=== PATIENT | female | born 1955 | race Hispanic/Latino ===

== ENCOUNTER 2021-02-19 13:03 | Emergency (ER) | payer BC, SELFPAY ==
[2021-02-19 13:15] VITALS: BP 165/92; PULSE 88; RESP 16; TEMP 36.9; O2SAT 99
--- NOTE | 2021-02-19 13:28 | ED.GENADULT ---
HPI - General Adult General Chief complaint: Unspecified Stated complaint: HBP Time Seen by Provider: 02/19/21 13:35 Source: patient Mode of arrival: ambulatory Limitations: no limitations History of Present Illness HPI narrative: Suyapa Quijano is a 65 yo female with a PMH hypothyroid, HTN, anxiety, high cholesterol, who comes to [facility] for an elevated blood pressure reading that she wants checked with the satff and o ask whether she can take lonazepam and clonidine at the same time Related Data Home Medications Medication Instructions Recorded Confirmed Arisocort TID 02/19/21 Diclofenac Gel 02/19/21 atorvastatin 40 mg PO DAILY 02/19/21 02/19/21 clonazepam BID PRN 02/19/21 clonidine HCl BID PRN 02/19/21 ergocalciferol (vitamin D2) 50 mcg PO DAILY 02/19/21 02/19/21 fluticasone propionate [Allergy 2 spray INTRANASAL DAILY 02/19/21 02/19/21 Relief (fluticasone)] levothyroxine 112 mcg PO DAILY 02/19/21 02/19/21 melatonin mg 02/19/21 olmesartan-hydrochlorothiazide 1 tablet PO DAILY 02/19/21 02/19/21 Allergies Allergy/AdvReac Type Severity Reaction Status Date / Time No Known Allergies Allergy Verified 02/19/21 13:26 Review of Systems Review of Systems: CONSTITUTIONAL: Denies fever, chills, sweats. EYES: Denies visual changes, redness, discharge. ENT: Denies rhinorrhea, congestion, sore throat, otalgia. CARDIOVASCULAR: Denies chest pain, palpitations, edema. RESPIRATORY: Denies dyspnea, wheezing, cough GASTROINTESTINAL: Denies abdominal pain, nausea, vomiting, diarrhea. GENITOURINARY: Denies dysuria, hematuria, abnormal discharge SKIN: Denies rash or itching. NEUROLOGIC: Denies numbness, or focal weakness. PSYCHIATRIC: Has anxiety or depression. Elevated blood pressure PMFSH Past Medical History Medical History Anxiety High cholesterol HTN (hypertension) Hypothyroid Social History Social History (Updated 02/19/21 @ 13:39 by Rachna Love CNP) Smoking status: Former smoker Alcohol intake: former Comments At time of signature, I agree with nursing past medical, surgical, social and family history. There is no relevant family history pertinent to the presenting complaint. Exam Narrative: GENERAL: This is a well-nourished, well-developed patient, anxious HEAD: normocephalic, atraumatic. EYES: Sclera clear/white. Vision is grossly intact. EARS: External ears normal, . Hearing grossly intact. NOSE: External nose normal without nasal discharge, THROAT: Mucous membranes moist, NECK: Neck supple, CARDIOVASCULAR: Regular rate and rhythm without murmurs, gallops, or rubs. RESPIRATORY: Clear to auscultation. Breath sounds equal bilaterally. No wheezes, rales, or rhonchi. GASTROINTESTINAL: Abdomen soft, SKIN: warm, intact NEURO: awake, alert, and oriented to person, place and time. There were no obvious focal neurologic abnormalities. EXTREMITIES: Normal range of motion. BACK: Not done Course Course Emergency Course: Patient here for anxiety and elevated blood pressure questions about use of clonazepam and clonidine Clarified patient may take the drugs together or separately as not to take clonidine more than twice a day as it is the supplemental drug to her primary blood pressure medication Strongly encourage patient to get a primary care physician if she is going to stay in the area Vital Signs Vital signs: Vital Signs Temperature 98.5 F 02/19/21 13:15 Pulse Rate 88 02/19/21 13:15 Respiratory Rate 16 02/19/21 13:15 Blood Pressure 165/92 H 02/19/21 13:15 Pulse Oximetry 99 02/19/21 13:15 Temperature 98.5 F 02/19/21 13:41 Pulse Rate 79 02/19/21 13:58 Respiratory Rate 16 02/19/21 13:41 Blood Pressure 159/98 H 02/19/21 13:58 Pulse Oximetry 99 02/19/21 13:41 Medical Decision Making Differential Diagnosis Differential Diagnosis: Anxiety versus viv Vital Signs Vital Signs: Milka
[2021-02-19 13:41] VITALS: BP 165/92; PULSE 88; RESP 16; TEMP 36.9; O2SAT 99
[2021-02-19 13:58] VITALS: BP 159/98; PULSE 79
== END 2021-02-19 13:58 | disposition home or self-care (01) ==
PROVIDERS: Emergency Provider Nurse Practitioner
DX: I10 Essential (primary) hypertension (principal); T43.595A Adverse effect of other antipsychotics and neuroleptics, initial encounter; E78.00 Pure hypercholesterolemia, unspecified; E03.9 Hypothyroidism, unspecified; F41.9 Anxiety disorder, unspecified; Z87.891 Personal history of nicotine dependence
CPT/HCPCS: 99211; G0463

== ENCOUNTER 2022-01-28 11:31 | Emergency (ER) | payer MEDICARE, BC, OTHER, SELFPAY ==
[2022-01-28 11:58] VITALS: BP 170/95; PULSE 109; RESP 18; TEMP 36.8; O2SAT 98
[2022-01-28 12:44] VITALS: BP 184/82
--- NOTE | 2022-01-28 12:50 | ED.URI ---
HPI - URI/Sore Throat General Chief Complaint: Upper Respiratory Infection Stated Complaint: congestion Time Seen by Provider: 01/28/22 12:50 Source: patient Mode of arrival: ambulatory Limitations: no limitations History of Present Illness HPI Narrative: John is a 66-year-old female patient presenting to the clinic today with complaints of nasal congestion and cough. She reports that these have been going for approximately 5 days. She knows she is bringing up some green phlegm. She denies any fever or chills. She she reports that she just got back from [place] that she was seeing her grandchildren and they were sick with upper respiratory symptoms. also reports that she has also reports that she has possible conjunctivitis to the left eye. She reports that her eye was matted shut this morning with yellow drainage MD elicited complaint: cough and nasal congestion Related Data Home Medications Medication Instructions Recorded Confirmed Arisocort TID 02/19/21 10/05/21 Diclofenac Gel 02/19/21 10/05/21 atorvastatin 40 mg tablet 40 mg PO DAILY 02/19/21 10/05/21 clonidine HCl 0.1 mg tablet BID PRN Blood Pressure 02/19/21 10/05/21 ergocalciferol (vitamin D2) 50 mcg 50 mcg PO DAILY 02/19/21 10/05/21 (2,000 unit) tablet fluticasone propionate 50 2 spray intranasal DAILY 02/19/21 10/05/21 mcg/actuation nasal spray,suspension (Allergy Relief (fluticasone)) levothyroxine 112 mcg capsule 112 mcg PO DAILY 02/19/21 10/05/21 melatonin 5 mg tablet mg 02/19/21 10/05/21 Allergies Allergy/AdvReac Type Severity Reaction Status Date / Time No Known Allergies Allergy Verified 01/28/22 12:16 Review of Systems Review of Systems: Pertinent positives per HPI. Patient denies any fever, chills, rash, headache, visual changes, dizziness, cough, shortness of breath, chest pain, palpitations, nausea, vomiting, diarrhea, constipation, abdominal pain, or any urinary issues. [facility] Past Medical History Medical History Anxiety Diabetes High cholesterol HTN (hypertension) Hypothyroidism Obesity Surgical History Surgical History History of bunionectomy of left great toe History of delivery History of hysterectomy History of meniscectomy of left knee History of tonsillectomy History of trigger finger Family History Family History Father Hypertension Mother Diabetes mellitus Hypertension Social History Social History Smoking status: Former smoker Tobacco type: cigarettes Second hand tobacco smoke exposure: No Alcohol intake: former Substance use: never Substance use type: does not use Gender identity (if verbalized by the patient): Female Sexual Orientation (if Verbalized by the Patient): Straight or Heterosexual Comments At the time of my signature, I reviewed and agree with the nursing past medical, surgical, social, and family history. There is no relevant family history pertinent to the patient complaint. Exam Narrative: General: Well-developed, well nourished, in no apparent distress Head: Normocephalic, atraumatic Eyes: Pupils equally round and reactive to light bilaterally, EOM intact, right sclera and conjunctive clear, left conjunctiva red with mild lid swelling, yellow discharge Ears: TMs intact and clear, ear canals clear, no drainage, grossly hearing normal. Nose: Nares patent, clear nasal discharge, moderate inflammation, no sinus tenderness. Mouth: Oral pharynx without lesions or masses, good dentition, MMM. postnasal drip Neck: Supple, trachea midline, no enlargement of anterior or posterior cervical nodes, no thyroid masses or goiter palpable. Cardio: Regular rate and rhythm, s1 and s2 normal, no murmur appreciated. Resp
== END 2022-01-28 12:56 | disposition home or self-care (01) ==
PROVIDERS: Emergency Provider Nurse Practitioner Family; PCP Family Medicine
DX: J06.9 Acute upper respiratory infection, unspecified (principal); H10.9 Unspecified conjunctivitis; Z20.822 Contact with and (suspected) exposure to COVID-19; Z87.891 Personal history of nicotine dependence; E11.9 Type 2 diabetes mellitus without complications; E78.00 Pure hypercholesterolemia, unspecified; I10 Essential (primary) hypertension; E03.9 Hypothyroidism, unspecified; E66.9 Obesity, unspecified; Z68.33 Body mass index [BMI] 33.0-33.9, adult
CPT/HCPCS: 87426; 87804; 99213; C9803; G0463

== ENCOUNTER 2022-07-15 08:41 | Emergency (ER) | payer MEDICARE, OTHER, SELFPAY ==
[2022-07-15 09:11] VITALS: BP 152/92; PULSE 77; RESP 18; TEMP 36.8; O2SAT 95
[2022-07-15] MEDS: MECLIZINE HCL 25 MG TABLET PO (09:17)
[2022-07-15 09:46] VITALS: BP 122/76
[2022-07-15 10:01] VITALS: BP 120/73
--- NOTE | 2022-07-15 10:12 | PC.NURSE ---
Up to bathroom. Reports decrease in dizziness.
--- NOTE | 2022-07-15 10:51 | ED.GENADULT ---
HPI - General Adult General Chief complaint: Dizziness Stated complaint: Dizzy Time Seen by Provider: 07/15/22 08:45 History of Present Illness HPI narrative: Patient is a 66-year-old female with history of vertigo who presents to the ER with dizziness. Woke up this morning and when she turns her head things moving a semicircular way. No nausea. No fevers or chills or sweats. No focal weakness or numbness of an arm or leg. No slurred speech. Reports that she is feeling popping in the left ear. Related Data Home Medications Medication Instructions Recorded Confirmed Arisocort TID 02/19/21 07/03/22 clonidine HCl 0.1 mg tablet BID PRN Blood Pressure 02/19/21 07/03/22 ergocalciferol (vitamin D2) 50 mcg 50 mcg PO DAILY 02/19/21 07/03/22 (2,000 unit) tablet melatonin 5 mg tablet mg 02/19/21 07/03/22 Allergies Allergy/AdvReac Type Severity Reaction Status Date / Time No Known Allergies Allergy Verified 07/15/22 09:14 Review of Systems Constitutional: Constitutional: Denies chills and Denies fever(s) ENT: Reports dizziness, Denies nasal congestion and Denies sore throat Neurologic: Denies syncope, Denies headache(s), Denies focal weakness and Denies numbness PMFSH Past Medical History Medical History Anxiety Diabetes Diabetes mellitus with hyperglycemia High cholesterol HTN (hypertension) Hypothyroidism Obesity Surgical History Surgical History History of bunionectomy of left great toe History of delivery History of hysterectomy History of meniscectomy of left knee History of tonsillectomy History of trigger finger Family History Family History Father Hypertension Mother Diabetes mellitus Hypertension Social History Social History Smoking status: Former smoker Tobacco type: cigarettes Second hand tobacco smoke exposure: No Alcohol intake: former Substance use: never Substance use type: does not use Living arrangements: with family Occupation/Education: retired Gender identity (if verbalized by the patient): Female Sexual Orientation (if Verbalized by the Patient): Straight or Heterosexual Exam Narrative: GENERAL: Well-appearing, well-nourished, and in no acute distress. HEAD: Normocephalic, atraumatic. EYES: PERRL and EOMI. ENT: Mucous membranes moist. Loud audible pop with manipulation of the ear on the left and minor pop on the right. TMs normal in appearance and nonbulging and not erythematous. No cerumen impaction. NECK: Supple. CHEST: Clear to auscultation. No respiratory distress. HEART: Regular rate and rhythm. Normal peripheral pulses. EXTREMITIES: Normal range of motion. No edema. Ambulates with steady gait. NEURO: Alert and oriented x3. PSYCH: Normal mood and affect. Course Course Emergency Course: Patient improved with meclizine and ear manipulation. Discharged with meclizine for home. Suspect this is related to increased pressure from allergens in the air as the trees are currently in balloon. Vital Signs Vital signs: Vital Signs Temperature 98.2 F 07/15/22 09:11 Pulse Rate 77 07/15/22 09:11 Respiratory Rate 18 07/15/22 09:11 Blood Pressure 152/92 H 07/15/22 09:11 Pulse Oximetry 95 07/15/22 09:11 Oxygen Delivery Room Air 07/15/22 09:11 Temperature 98.2 F 07/15/22 09:11 Pulse Rate 77 07/15/22 09:11 Respiratory Rate 18 07/15/22 09:11 Blood Pressure 120/73 07/15/22 10:01 Pulse Oximetry 95 07/15/22 09:11 Oxygen Delivery Room Air 07/15/22 09:11 Medical Decision Making Vital Signs Vital Signs: Vital Signs Temperature 98.2 F 07/15/22 09:11 Pulse Rate 77 07/15/22 09:11 Respiratory Rate 18 07/15/22 09:11 Blood Pressure 152/92 H 07/15/22 09:11 Pulse Oximetry 95
== END 2022-07-15 11:15 | disposition home or self-care (01) ==
PROVIDERS: Emergency Provider Emergency Medicine; PCP Family Medicine
DX: H81.399 Other peripheral vertigo, unspecified ear (principal); E11.9 Type 2 diabetes mellitus without complications; E78.00 Pure hypercholesterolemia, unspecified; I10 Essential (primary) hypertension; E03.9 Hypothyroidism, unspecified; E66.9 Obesity, unspecified; Z68.31 Body mass index [BMI] 31.0-31.9, adult; Z90.710 Acquired absence of both cervix and uterus; Z87.891 Personal history of nicotine dependence
CPT/HCPCS: 99283; A9270

== ENCOUNTER 2022-10-31 15:05 | Emergency (ER) | payer MEDICARE, OTHER, SELFPAY ==
[2022-10-31 15:15] VITALS: BP 171/94; PULSE 89; RESP 16; TEMP 37; O2SAT 99
--- NOTE | 2022-10-31 15:46 | ED.EAR ---
HPI - Ear Problem General Chief complaint: Ear Stated complaint: Left Ear Irritation Time Seen by Provider: 10/31/22 15:47 Source: patient Mode of arrival: ambulatory Limitations: no limitations History of Present Illness HPI Narrative: 67-year-old female presented for complaint of bilateral ear pressure today. Endorses chronic tinnitus, not worse from baseline. Also endorses sinus congestion. Denies ear drainage, pain, dizziness, n/v/d/f/c. Has had similar symptoms in the past, told she had fluid in the ears, and was given Rx meclizine which she declines to take. Patient also mentioned 3 nights ago she had headache, elevated bp readings at home, for which she took prn clonidine. Also reports hx anxiety, and has clonazepam, but was unsure if she should take med to address bp vs anxiety. Denies cp, palpitations, sob, wheezing or headache. Provided bp readings from home, ranging 120/70s-180/90. Related Data Home Medications Medication Instructions Recorded Confirmed cetirizine 10 mg tablet (Zyrtec) 10 mg PO DAILY 10/31/22 10/31/22 Allergies Allergy/AdvReac Type Severity Reaction Status Date / Time No Known Allergies Allergy Verified 10/31/22 15:21 Review of Systems Review of Systems: CONSTITUTIONAL: Denies body aches, fever, chills, or sweats. EYES: Denies visual changes, redness, or discharge. ENT: reports rhinorrhea, congestion, ear pressure, denies sore throat, or otalgia. CARDIOVASCULAR: Denies chest pain, palpitations, or edema. RESPIRATORY: Denies cough or dyspnea. GASTROINTESTINAL: Denies abdominal pain, nausea, vomiting, or diarrhea. GENITOURINARY: Denies dysuria or hematuria. SKIN: Denies rash, itching, or wounds. MUSCULOSKELETAL: Denies back pain, joint pain, or myalgia. NEUROLOGIC: Denies headache, numbness, tingling, or weakness. PSYCH: Reports anxiety. All systems reviewed & are unremarkable except as noted in HPI and below PMFSH Past Medical History Medical History Anxiety Diabetes Diabetes mellitus with hyperglycemia High cholesterol HTN (hypertension) Hypothyroidism Obesity Surgical History Surgical History History of bunionectomy of left great toe History of delivery History of hysterectomy History of meniscectomy of left knee History of tonsillectomy History of trigger finger Family History Family History Father Hypertension Mother Diabetes mellitus Hypertension Social History Social History Smoking status: Former smoker Tobacco type: cigarettes Second hand tobacco smoke exposure: No Alcohol intake: former Substance use: never Substance use type: does not use Living arrangements: with family Occupation/Education: retired Gender identity (if verbalized by the patient): Female Sexual Orientation (if Verbalized by the Patient): Straight or Heterosexual Comments At time of signature, I have reviewed and agree with nursing past medical, surgical, social and family history unless otherwise noted. Please see nursing chart for further information. There is no relevant family history pertinent to the presenting complaint Exam Narrative: GENERAL: Well-appearing, well-nourished, and in no acute distress. HEAD: Normocephalic, atraumatic. EYES: EOMI. No redness or drainage. Conjunctivae normal. ENT: Mucous membranes pink and moist. No rhinorrhea. TMs normal bilaterally. Throat normal. Uvula midline. NECK: Normal AROM. Supple. No lymphadenopathy. CHEST: No respiratory distress. Clear to auscultation. HEART: Regular rate and rhythm. No murmur appreciated. Normal peripheral pulses. ABDOMEN: Soft, nontender, nondistended, normal active bowel sounds. EXTREMITIES: Normal range of motion. No edema. SKIN: Warm, dry, no rash. Capill
[2022-10-31 16:05] VITALS: BP 156/89; PULSE 89
== END 2022-10-31 16:08 | disposition home or self-care (01) ==
PROVIDERS: Emergency Provider Nurse Practitioner Family; PCP Family Medicine
DX: I10 Essential (primary) hypertension (principal); E11.9 Type 2 diabetes mellitus without complications; E78.00 Pure hypercholesterolemia, unspecified; E03.9 Hypothyroidism, unspecified; E66.9 Obesity, unspecified; Z68.30 Body mass index [BMI] 30.0-30.9, adult; F41.9 Anxiety disorder, unspecified; Z87.891 Personal history of nicotine dependence
CPT/HCPCS: 99211; G0463

== ENCOUNTER 2023-04-15 16:27 | Emergency (ER) | payer MEDICARE, OTHER, SELFPAY ==
[2023-04-15 16:32] VITALS: BP 193/91; PULSE 99; RESP 18; TEMP 36.6; O2SAT 99
[2023-04-15 16:50] VITALS: BP 161/86; PULSE 89; RESP 17; O2SAT 99
[2023-04-15 17:16] VITALS: BP 137/91; PULSE 85; RESP 20; O2SAT 96
--- NOTE | 2023-04-15 20:18 | ED.RECABL ---
HPI - Recheck/Abnormal Lab/Rx General Chief Complaint: Recheck/Abnormal Lab/Rx Stated Complaint: htn Time Seen by Provider: 04/15/23 16:35 History of Present Illness HPI narrative: patient with history of hypertension and anxiety was checking her 's blood pressure, saw it was high, decided to just check her own even though she was asymptomatic, is also high, this made her very nervous, and she became more nervous her blood pressure started going up even more. She has had similar episodes in the past, but she did take a clonidine, and came in. Currently no symptoms. Related Data Home Medications Medication Instructions Recorded Confirmed cetirizine 10 mg tablet (Zyrtec) 10 mg PO DAILY 10/31/22 11/29/22 Allergies Allergy/AdvReac Type Severity Reaction Status Date / Time No Known Allergies Allergy Verified 11/29/22 10:23 Review of Systems Review of Systems: CONST: No fever. HEENT: No sore throat C/V: No chest pain RESP: No cough GI: no abdominal pain : No dysuria. M/S: No joint pain. SKIN: No rash. NEURO: [No headache or focal numbness or weakness] PSYCH: Anxious [facility] Past Medical History Medical History (Updated 04/15/23 @ 17:03 by Shannan Castanon MD) Anxiety Diabetes Diabetes mellitus with hyperglycemia High cholesterol HTN (hypertension) Hypothyroidism Obesity Surgical History Surgical History History of bunionectomy of left great toe History of delivery History of hysterectomy History of meniscectomy of left knee History of tonsillectomy History of trigger finger Family History Family History Father Hypertension Mother Diabetes mellitus Hypertension Social History Social History Smoking status: Former smoker Tobacco type: cigarettes Second hand tobacco smoke exposure: No Alcohol intake: former Substance use: never Substance use type: does not use Living arrangements: with family Occupation/Education: retired Gender identity (if verbalized by the patient): Female Sexual Orientation (if Verbalized by the Patient): Straight or Heterosexual Exam Narrative: EXAMINATION OF ORGAN SYSTEMS/BODY AREAS: Constitutional: Vital signs per nursing GENERAL:[No acute distress, non-toxic appearing.] HEAD: Normal with no signs of head trauma. EYES: EOMI, conjunctiva normal ENT: Hearing grossly intact LUNGS: Nonlabored breathing. HEART: [Regular rate and rhythm] ABD: [Soft], [nontender to palpation] EXT: Normal range of motion SKIN: [No rashes or lesions.] NEURO: [Alert and oriented x 3. No gross focal sensory or strength deficits.] PSYCH: Normal affect Course Vital Signs Vital signs: Vital Signs Temperature 98 F 04/15/23 16:32 Pulse Rate 99 04/15/23 16:32 Respiratory Rate 18 04/15/23 16:32 Blood Pressure 193/91 H 04/15/23 16:32 Pulse Oximetry 99 04/15/23 16:32 Temperature 98 F 04/15/23 16:32 Pulse Rate 85 04/15/23 17:16 Respiratory Rate 20 04/15/23 17:16 Blood Pressure 137/91 H 04/15/23 17:16 Pulse Oximetry 96 04/15/23 17:16 MDM - Recheck/Abnormal Lab/Rx MDM Narrative Medical decision making narrative: Patient with asymptomatic hypertension. No signs or symptoms of end organ dysfunction; no chest pain or shortness of breath, neurological deficits, severe headaches, visual disturbance, oliguria, or symptoms of dissection/AAA). Long-term risks of hypertension, especially uncontrolled, were discussed including increased risks of kidney disease, vascular disease, stroke and heart disease. patient declined blood work at this time. She had recent blood work done a week ago that was normal. She is already on blood pressure medication and and he her blood pressure is now 137/91 and is normal. She has been keeping track of blood
== END 2023-04-15 17:17 | disposition home or self-care (01) ==
PROVIDERS: Emergency Provider Emergency Medicine; PCP Family Medicine
DX: I10 Essential (primary) hypertension (principal); F41.9 Anxiety disorder, unspecified; E11.9 Type 2 diabetes mellitus without complications; E78.00 Pure hypercholesterolemia, unspecified; E03.9 Hypothyroidism, unspecified; E66.9 Obesity, unspecified; Z68.35 Body mass index [BMI] 35.0-35.9, adult; Z87.891 Personal history of nicotine dependence; Z90.710 Acquired absence of both cervix and uterus
CPT/HCPCS: 99281

== ENCOUNTER 2023-05-09 16:48 | Emergency (ER) | payer MEDICARE, OTHER, SELFPAY ==
[2023-05-09 16:55] VITALS: BP 182/99; PULSE 90; RESP 20; TEMP 36.8; O2SAT 97
[2023-05-09 18:02] VITALS: BP 150/81; PULSE 82; RESP 13; O2SAT 97
--- NOTE | 2023-05-09 18:24 | ED.RECABL ---
HPI - Recheck/Abnormal Lab/Rx General Chief Complaint: Recheck/Abnormal Lab/Rx Stated Complaint: htn Time Seen by Provider: 05/09/23 17:55 Source: patient and old records reviewed Mode of arrival: ambulatory Limitations: no limitations History of Present Illness HPI narrative: Patient is a 67-year-old female, past medical history of anxiety and hypertension, who presents the ED with report of elevated blood pressure. Patient reports she has issues w/ her son over the last 1 week, which has triggered her anxiety. She has been dealing with anxiety since COVID. She takes clonazepam b.i.d. and has for the last couple of years. She was started on Lexapro by her primary care doctor on Sunday. She additionally takes olmesartan/hydrochlorothiazide daily for chronic hypertension and is rx'd clonidine on an prn basis. Patient states she became very anxious today regarding her son. She checked her blood pressure and noted to be elevated into the 170s systolic. She attempted taking a clonidine, but states her blood pressure continue to elevate, which prompted her presentation. She denies any other symptoms, denies chest pain, shortness of breath, dizziness, lightheadedness, vision changes, headache, N/V, SI/HI. Patient states this has been ongoing issue for her and she has been seen in our ED previously for similar symptoms. Related Data Home Medications Medication Instructions Recorded Confirmed cetirizine 10 mg tablet (Zyrtec) 10 mg PO DAILY 10/31/22 05/04/23 Allergies Allergy/AdvReac Type Severity Reaction Status Date / Time No Known Allergies Allergy Verified 05/03/23 13:48 Review of Systems Review of Systems: CONSTITUTIONAL: Denies fever, chills, or sweats. ENT: Denies vision changes. CARDIOVASCULAR: Denies chest pain, palpitations, or edema. RESPIRATORY: Denies cough or dyspnea. GASTROINTESTINAL: Denies abdominal pain, nausea, vomiting. NEUROLOGIC: Denies headache, dizziness, numbness, or weakness. PSYCHIATRIC: See HPI All systems reviewed & are unremarkable except as noted in HPI and below PMFSH Past Medical History Medical History Anxiety Diabetes Diabetes mellitus with hyperglycemia High cholesterol HTN (hypertension) Hypothyroidism Obesity Surgical History Surgical History History of bunionectomy of left great toe History of delivery History of hysterectomy History of meniscectomy of left knee History of tonsillectomy History of trigger finger Family History Family History Father Hypertension Mother Diabetes mellitus Hypertension Social History Social History Smoking status: Former smoker Tobacco type: cigarettes Second hand tobacco smoke exposure: No Alcohol intake: former Substance use: never Substance use type: does not use Living arrangements: with family Occupation/Education: retired Gender identity (if verbalized by the patient): Female Sexual Orientation (if Verbalized by the Patient): Straight or Heterosexual Exam Narrative: GENERAL: Well appearing, obese with BMI of 31.2, non-toxic, in no acute distress. HEAD: Normocephalic, atraumatic. RESPIRATORY: Airway patent, respirations nonlabored. Clear to auscultation bilaterally, no rales, rhonchi, wheezing. CARDIOVASCULAR: Regular rate and rhythm. MUSCULOSKELETAL: Moves all extremities. No gross deformities. SKIN: Warm, dry, normal color. NEURO: A&O X3. Speech clear. Cranial nerves II-XII grossly intact. Steady gait. No ataxic movements. No focal deficits. PSYCHIATRIC: Anxious. Normal interaction. Course Vital Signs Vital signs: Vital Signs Temperature 98.2 F 05/09/23 16:55 Pulse Rate 90 05/09/23 16:55 Respiratory Rate 20 05/09/23 16:55 Blood
[2023-05-09 18:32] VITALS: BP 146/93; PULSE 86; RESP 16; TEMP 36.6; O2SAT 98
[2023-05-09 18:45] VITALS: BP 146/93; PULSE 77; RESP 18
[2023-05-09 19:09] VITALS: TEMP 36.6
== END 2023-05-09 19:09 | disposition home or self-care (01) ==
LOC: ANHED 18:56
PROVIDERS: Emergency Provider Physician Assistant; PCP Family Medicine
DX: I10 Essential (primary) hypertension (principal); F41.9 Anxiety disorder, unspecified; E11.9 Type 2 diabetes mellitus without complications; E03.9 Hypothyroidism, unspecified; Z79.899 Other long term (current) drug therapy; Z87.891 Personal history of nicotine dependence
CPT/HCPCS: 99283

== ENCOUNTER 2023-06-12 00:02 | Emergency (ER) | payer MEDICARE, OTHER, SELFPAY ==
[2023-06-12 00:04] VITALS: BP 167/96; PULSE 86; RESP 17; TEMP 36.9; O2SAT 100
--- NOTE | 2023-06-12 00:10 | ECG_ITS ---
Measurements Intervals [place] Rate: 87 P: 34 CT: 170 QRS: -44 QRSD: 111 T: 7 QT: 385 QTc: 466 Interpretive Statements SINUS RHYTHM LEFT AXIS DEVIATION INTRAVENTRICULAR CONDUCTION DELAY PATTERN CONSISTENT WITH PULMONARY DISEASE BASELINE ARTIFACT- II, III, AVF BORDERLINE ECG NO PREVIOUS ECG AVAILABLE FOR COMPARISON Electronically Signed On 06-12-2023 6:34:55 CDT by Ibrahima Oneill D.O.
[2023-06-12 00:21] LABS: Basophils Percent Auto 0.2 % (0.2-1.2); Eosinophils Absolute Auto 0.3 K/mm3 (0-0.3); Eosinophils Percent Auto 3.2 % (0-4.4); Hematocrit 40.9 % (37.0-47.0); Hemoglobin 13.7 g/dL (12.0-15.0); Immature Granulocyte Absolute 0.02 K/mm3 (0.00-0.031); Immature Granulocyte Percent A 0.2 % (0-0.5); Lymphocytes Absolute Auto 2.35 K/mm3 (0.9-3.2); Lymphocytes Percent Auto 28.7 % (18.3-44.2); Mean Corpuscular HGB Conc 33.5 g/dl (32-36); Mean Corpuscular Hemoglobin 29.7 pg (26-34); Mean Corpuscular Volume 88.7 fl (80-100); Mean Platelet Volume 9.2 fl (7.4-10.4); Monocytes Absolute Auto 0.7 K/mm3 (0.1-0.6); Monocytes Percent Auto 8.7 % (2.6-8.5); Neutrophils Absolute Auto 4.8 K/mm3 (1.3-6.7); Platelet Count Result 506 k/mm3 (150-375); Red Blood Count 4.61 M/mm3 (4.2-5.4); Red Cell Distribution Width 12.5 % (11.5-14.5); White Blood Count 8.2 K/mm3 (4.5-10.0)
--- NOTE | 2023-06-12 00:24 | ED.DIZZY ---
HPI - Dizziness General Chief Complaint: Dizziness Stated Complaint: DIZZINESS WHILE STANDING X 30 MINUTES. Time Seen by Provider: 06/12/23 00:14 Source: patient Mode of arrival: EMS Limitations: no limitations History of Present Illness HPI Narrative: This is a 67-year-old female who presents to the ED via EMS for chief complaint of dizziness occurring just prior to arrival. Patient states that she had multiple episodes this evening of standing up and for extended period of time. Reports feelings of lightheadedness and wooziness whenever standing up. She also reports a little bit of vertigo type symptoms when turning head to the right but this is less severe. Reports that she has dealt with this in the past on a somewhat chronic basis. She is scheduled to see ENT tomorrow for ear ringing. Describes a vertigo as worse when turning the head to the right. Denies fevers, chills, numbness, weakness, speech change, vision change, chest pain, shortness of breath. Denies syncope. Endorses recent diagnosis of diverticulitis and has been on Cipro and Flagyl. Reports that she has had several episodes of loose stools over the last several days. She has not been drinking much water. Related Data Home Medications Medication Instructions Recorded Confirmed cetirizine 10 mg tablet (Zyrtec) 10 mg PO DAILY 10/31/22 05/31/23 Allergies Allergy/AdvReac Type Severity Reaction Status Date / Time No Known Allergies Allergy Verified 05/31/23 11:01 Review of Systems Review of Systems: All systems as dictated in [facility] Past Medical History Medical History Anxiety Diabetes Diabetes mellitus with hyperglycemia High cholesterol HTN (hypertension) Hypothyroidism Obesity Surgical History Surgical History History of bunionectomy of left great toe History of delivery History of hysterectomy History of meniscectomy of left knee History of tonsillectomy History of trigger finger Family History Family History Father Hypertension Mother Diabetes mellitus Hypertension Social History Social History Smoking status: Former smoker Tobacco type: cigarettes Second hand tobacco smoke exposure: No Alcohol intake: former Substance use: never Substance use type: does not use Living arrangements: with family Occupation/Education: retired Gender identity (if verbalized by the patient): Female Sexual Orientation (if Verbalized by the Patient): Straight or Heterosexual Exam Narrative: GENERAL: Well-appearing, well-nourished, and in no acute distress. HEAD: Normocephalic, atraumatic. EYES: PERRLA and EOMI. ENT: Nares clear, no rhinorrhea or epistaxis. Mucous membranes moist. Oropharynx without tonsillar hypertrophy exudate or other lesions. NECK: Supple. No adenopathy or masses. CHEST: No respiratory distress. Clear to auscultation. No wheezes rales or rhonchi HEART: Regular rate and rhythm. No murmur heard. Normal peripheral pulses. ABDOMEN: Soft, nontender, nondistended, normal active bowel sounds. MSK: Normal range of motion. No edema. SKIN: Warm, dry, no rash. NEURO: Alert and oriented x 4. 5/5 strength and sensation in the upper and lower extremities. There is a horizontal corrective saccade when turning the head to the right. No vertical nystagmus. No skew deviation. Coordination intact. Negative pronator drift PSYCH: Normal mood and affect. Course Vital Signs Vital signs: Vital Signs Temperature 98.5 F 06/12/23 00:04 Pulse Rate 86 06/12/23 00:04 Respiratory Rate 17 06/12/23 00:04 Blood Pressure 167/96 H 06/12/23 00:04 Pulse Oximetry 100 06/12/23 00:04 Oxygen Delivery Room Air 06/12/23 00:04 Temperature 98.5 F 06/12/23 00:04 Pu
[2023-06-12] MEDS: MECLIZINE HCL 25 MG TABLET PO (00:36)
[2023-06-12] MEDS: METOCLOPRAMIDE HCL INJ 10 MG/2 ML VIAL IV PUSH (00:36)
[2023-06-12] MEDS: SODIUM CHLORIDE 0.9% IV 1,000 ML 999 ML IV CONT (00:38)
[2023-06-12 01:19] LABS: Alanine Aminotransferase 54 U/L (6-35); Albumin Level 4.1 g/dL (3.5-5.1); Alkaline Phosphatase 131 U/L (38-126); Anion Gap 5 mmol/L (8-16); Aspartate Amino Transferase 54 U/L (14-36); Bilirubin,Total 0.4 mg/dL (0.2-1.3); Blood Urea Nitrogen 21 mg/dL (7-17); Calcium 9.3 mg/dL (8.4-10.2); Carbon Dioxide 29 mmol/L (22-30); Chloride 100 mmol/L (98-107); Estimated CRCL calculation 73 ml/min; Estimated Glomerular Filt Rate > 60; Glucose 133 mg/dL (65-110); Potassium 3.5 mmol/L (3.4-5.0); Sodium 134 mmol/L (137-145)
[2023-06-12 01:22] VITALS: BP 142/74; PULSE 87; RESP 16; O2SAT 96
[2023-06-12 01:37] VITALS: BP 148/76; PULSE 95
[2023-06-12 01:38] VITALS: BP 174/90; PULSE 95
[2023-06-12 01:43] VITALS: BP 166/91; PULSE 95
== END 2023-06-12 02:13 | disposition home or self-care (01) ==
PROVIDERS: Emergency Medicine; Emergency Provider Physician Assistant; PCP Family Medicine
DX: H81.10 Benign paroxysmal vertigo, unspecified ear (principal); I95.1 Orthostatic hypotension; I10 Essential (primary) hypertension; E11.9 Type 2 diabetes mellitus without complications; E78.00 Pure hypercholesterolemia, unspecified; E03.9 Hypothyroidism, unspecified; E66.9 Obesity, unspecified; Z68.35 Body mass index [BMI] 35.0-35.9, adult; F41.9 Anxiety disorder, unspecified; Z90.710 Acquired absence of both cervix and uterus; Z87.891 Personal history of nicotine dependence
CPT/HCPCS: 36415; 80053; 85025; 93005; 96361; 96374; 99284; A9270; J2765; J7030

== ENCOUNTER 2023-06-28 14:03 | Outpatient (CLI) | payer MEDICARE, OTHER, SELFPAY | END 2023-06-28 14:04 | disposition home or self-care (01) | LOC: ANHAUDIO 14:07 | PROVIDERS: PCP Family Medicine; Visit Provider Otolaryngology | DX: H90.3 Sensorineural hearing loss, bilateral (principal); E11.65 Type 2 diabetes mellitus with hyperglycemia; H81.10 Benign paroxysmal vertigo, unspecified ear; I95.1 Orthostatic hypotension; H93.19 Tinnitus, unspecified ear | CPT/HCPCS: 92557; 92567 ==

== ENCOUNTER 2024-10-01 12:32 | Outpatient (CLI) | payer MEDICARE, OTHER, SELFPAY ==
--- NOTE | ~2024-10-01 | DEXA_ITS ---
Bone Density Report Name: COLLEEN GRIMES Age: 68 Sex: Female Ethnicity: White Date of : 1955 Indication: postmenopausal; screening for osteoporosis; height loss; hysterectomy; Referring Provider: JOSE MCGINNIS Study: Bone densitometry was performed. Exam Date: October 01, 2024 Accession number: [id number] Bone Density: Region BMD T-score Z-score Classification AP Spine(L1-L4) 1.102 0.5 2.5 Normal Femoral Neck (Left) 0.725 -1.1 0.6 Osteopenia Total Hip (Left) 0.995 0.4 1.8 Normal Femoral Neck (Right) 0.732 -1.1 0.6 Osteopenia Total Hip (Right) 1.027 0.7 2.1 Normal Total Hip Mean 1.011 0.6 2.0 Normal World Health Organization criteria for BMD impression classify patients as: Normal (T-score at or above -1.0), Osteopenia (T-score between -1.0 and -2.5), or Osteoporosis (T-score at or below -2.5). 10-year Fracture Risk(1): Major Osteoporotic Fracture 8.1% Hip Fracture 0.7% Reported Risk Factors: [place] (), Neck BMD=0.725, BMI=35.1 (1) FRAX(R) Version 3.08. Fracture probability calculated for an untreated patient. Fracture probability may be lower if the patient has received treatment. Clinical Information Provided by Patient: Has used the following medications: Vitamin D, LEVOTHYROXINE Has the following medical conditions: Hysterectomy Patient maximum height was 64.0 Menopause Age: 41 No regular weight bearing exercise Drinks caffeinated beverages Onset of menses at age 12 Number of children 2 Missed period for more than 6 months in a row Impression: The patient has low bone mass, based on the Left Femoral Neck T-score. The patient has an estimated ten-year risk of hip fracture of 0.7% and an estimated ten-year risk of major fracture of 8.1%, based on the WHO FRAX algorithm. Discussion: BONE DENSITY IS LOW AT ONE OR MORE SKELETAL SITES. This patient's lowest T-score is low at one or more skeletal sites. It meets the World Health Organization's (WHO) criteria for ?low bone mass? (T-score between -1.0 and -2.5). The patient's 10-year risk of fracture as calculated by FRAX is less than the threshold where pharmacological therapy is recommended by the National Osteoporosis Foundation (NOF). However, all treatment decisions require clinical judgment and consideration of individual patient factors, including patient preferences, comorbidities, previous drug use, risk factors not captured in the FRAX model (e.g., frailty, falls, vitamin D deficiency, increased bone turnover, interval significant decline in bone density) and possible under or overestimation of fracture risk by FRAX. The patient should follow a healthful lifestyle (good nutrition with adequate calcium and vitamin D, and appropriate weight-bearing exercise). Follow-Up: Consider repeating this study in 2 to 3 years to reassess this patient's status, or sooner if there is some new clinical indication. Reported by: JAIRO on 10/01/2024 1:17:00 PM. Reviewed, dictated and finalized at location A.
== END 2024-10-01 12:33 | disposition home or self-care (01) ==
LOC: MICIMG 12:33
PROVIDERS: PCP Physician Assistant Medical; Visit Provider Physician Assistant Medical
DX: Z78.0 Asymptomatic menopausal state (principal); M85.852 Other specified disorders of bone density and structure, left thigh; M85.851 Other specified disorders of bone density and structure, right thigh
CPT/HCPCS: 77080